=== PATIENT | male | born 1980 | race Caucasian/White ===

== ENCOUNTER 2019-07-02 06:21 | Emergency (ER) | payer BC ==
[~2019-07-02] VITALS: Ht 180.3 cm; Wt 96.4 kg
[2019-07-02 06:27] VITALS: Ht 180.3 cm; Wt 96.4 kg
[2019-07-02 08:43] VITALS: BP 129/91
[2019-07-03 05:07] LABS: RAPID PLASMA REAGIN Non Reactive (Non Reactive)
== END 2019-07-02 08:43 | disposition home or self-care (01) ==
LOC: ED 06:21
PROVIDERS: Emergency Medicine
DX: L02.414 Cutaneous abscess of left upper limb (principal); F17.210 Nicotine dependence, cigarettes, uncomplicated; Z71.6 Tobacco abuse counseling
CPT/HCPCS: 87491; 87591; 99406